=== PATIENT | male | born 1990 ===

== ENCOUNTER 2018-09-18 18:50 | Emergency (ER) | payer OTHER ==
--- NOTE | 2018-09-18 18:57 | ER Report ---
History and Physical Time Seen By MD: 18:58 HPI/ROS CHIEF COMPLAINT: Sore throat HISTORY OF PRESENT ILLNESS: This is a 27-year-old male who presents to the emergency department for a sore throat. Last Tuesday the patient's was in [place] for the , had a sore throat, went to a walking clinic, they tested him for strep throat was positive given an injection of penicillin. Continue to have a sore throat for the next couple of days, went to an emergency departments in [place] at which time they did some basic blood w ork and a CT of the neck all of which was negative. He continued with penicillin, has continued to progressively get worse since , with difficulties swallowing, now it feels as though his throat is starting to close, swelling in his tongue. He did go to [facility] for follow-up today, they switched him from a penicillin, now he is taking roel myosin, prednisone and was given a shot of Toradol. Patient has also been febrile at home, aches and chills. Patient states it's difficult to open his mouth completely or close it completely. Pain in the base of his tongue which wraps up around his right jaw into right side of his head. He also has right-sided ear pain. Denies chest pain or shortness of breath. He does however have nausea no vomiting. No diarrhea. REVIEW OF SYSTEMS: Constitutional: As above. Eyes: No discharge. ENT: As above. Cardiovascular: No chest pain, no palpitations. Respiratory: No cough, no shortness of breath. Gastrointestinal: As above. Genitourinary: No hematuria. Musculoskeletal: No back pain. Skin: No rashes. Neurological: No headache. Allergies: Coded Allergies: No Known Drug Allergies (Unverified , 09/18/18) Home Meds Reported Medications Prednisone (PREDNISONE) 20 Mg Tablet, 60 MG PO QDAY for 5 Days, TAB 09/18/18 Clindamycin Hcl (CLINDAMYCIN HCL) 300 Mg Capsule, 300 MG PO Q6H, #40 CAPSULE 09/18/18 Past Medical/Surgical History The patient has no significant past medical or surgical histories. Reviewed Nurses Notes: Yes Constitutional Vital Sign - Last 24 Hours 09/18/18 09/18/18 09/18/18 09/18/18 18:50 18:54 18:56 19:00 Temp 99.6 Pulse ??? 96 Resp 20 B/P (MAP) 150/102 150/102 (118) 130/87 (101) Pulse Ox 93 O2 Delivery Room Air 09/18/18 09/18/18 09/18/18 09/18/18 19:05 19:10 19:25 19:40 Pulse 94 95 ? Pulse Ox 91 90 09/18/18 09/18/18 09/18/18 09/18/18 19:55 20:00 20:06 20:10 Pulse ? B/P (MAP) ???/??? (1665) 118/85 (96) 09/18/18 09/18/18 09/18/18 09/18/18 20:25 20:30 20:40 20:55 Pulse ? B/P (MAP) 121/78 (92) Intake and Output 09/18/18 09/18/18 09/19/18 14:59 22:59 06:59 Intake Total 1200 ml 500 ml Balance 1200 ml 500 ml Physical Exam General Appearance: The patient is alert, has no immediate need for airway protection and no signs of toxicity. Eyes: Pupils equal and round no pallor or injection. ENT, Mouth: Mucous membranes are moist., TMs noted bilaterally, pearly cub[place], landmarks noted, no injection. Significant swelling and erythema to the tonsils and posterior oropharynx right>left. Anterior cervical chain and submandibular lymphadenopathy, mild preauricular lymphadenopathy.+ trismus. Respiratory: There are no retractions, lungs are clear to auscultation. Cardiovascular: Regular rate and rhythm, no murmurs, clicks or rubs. Gastrointestinal: Abdomen is soft and non tender, no masses, bowel sounds normal. Neurological: Alert and oriented 4. Moving all extreme these. Following all commands. No focal neuro deficits. Skin: Warm and dry, no rashes. Musculoskeletal: Neck is supple non tender. Extremities are nontender, nonswollen and have full range of motion. DIFFERENTIAL DIAGNOSIS: After history and physical exam differential diagnosis was considered for peritonsillar abscess, tonsillitis, Alexandro's angina, mono and strep pharyngitis. Medical Decision Making Data Points Result Diagram: 09/18/18192009/18/181920 Laboratory Hematology Test 09/18/18 19:21 Red Blood Count 5.51 M/uL (4.00-5.60) Mean Corpuscular Volume 85.1 fL (80.0-96.0) Mean Corpuscular Hemoglobin 29.4 pg (26.0-33.0) Mean Corpuscular Hemoglobin Concent 34.6 g/dL (32.0-36.0) Red Cell Distribution Width 12.7 % (11.5-14.5) Mean Platelet Volume 8.1 fL (7.2-11.1) Neutrophils (%) (Auto) 76.1 % (39.4-72.5) Lymphocytes (%) (Auto) 16.1 % (17.6-49.6) Monocytes (%) (Auto) 6.4 % (4.1-12.4) Eosinophils (%) (Auto) 0.9 % (0.4-6.7) Basophils (%) (Auto) 0.5 % (0.3-1.4) Nucleated RBC Relative Count (auto) 0.0 /100WBC Neutrophils # (Auto) 9.9 K/uL (2.0-7.4) Lymphocytes # (Auto) 2.1 K/uL (1.3-3.6) Monocytes # (Auto) 0.8 K/uL (0.3-1.0) Eosinophils # (Auto) 0.1 K/uL (0.0-0.5) Basophils # (Auto) 0.1 K/uL (0.0-0.1) Nucleated RBC Absolute Count (auto) 0.00 K/uL Sodium Level 139 mmol/L (137-145) Potassium Level 3.6 mmol/L (3.5-5.0) Chloride Level 104 mmol/L (98-107) Carbon Dioxide Level 23 mmol/L (22-30) Blood Urea Nitrogen 19 mg/dl (9-21) Creatinine 1.10 mg/dl (0.66-1.25) Glomerular Filtration Rate Calc > 60.0 Random Glucose 138 mg/dl (75-110) Lactate 1.4 mmol/L (0.7-2.1) Calcium Level 9.1 mg/dl (8.4-10.2) Total Bilirubin 0.6 mg/dl (0.2-1.3) Aspartate Amino Transf (AST/SGOT) 20 U/L (0-35) Alanine Aminotransferase (ALT/SGPT) 27 U/L (0-56) Alkaline Phosphatase 82 U/L (0-126) Total Protein 7.9 g/dl (6.3-8.2) Albumin 3.9 g/dl (3.5-5.0) Chemistry Test 09/18/18 19:21 White Blood Count 13.0 k/uL (4.5-11.0) Red Blood Count 5.51 M/uL (4.00-5.60) Hemoglobin 16.2 g/dL (14.0-18.0) Hematocrit 46.9 % (42.0-52.0) Mean Corpuscular Volume 85.1 fL (80.0-96.0) Mean Corpuscular Hemoglobin 29.4 pg (26.0-33.0) Mean Corpuscular Hemoglobin Concent 34.6 g/dL (32.0-36.0) Red Cell Distribution Width 12.7 % (11.5-14.5) Platelet Count 336 K/uL (150-450) Mean Platelet Volume 8.1 fL (7.2-11.1) Neutrophils (%) (Auto) 76.1 % (39.4-72.5) Lymphocytes (%) (Auto) 16.1 % (17.6-49.6) Monocytes (%) (Auto) 6.4 % (4.1-12.4) Eosinophils (%) (Auto) 0.9 % (0.4-6.7) Basophils (%) (Auto) 0.5 % (0.3-1.4) Nucleated RBC Relative Count (auto) 0.0 /100WBC Neutrophils # (Auto) 9.9 K/uL (2.0-7.4) Lymphocytes # (Auto) 2.1 K/uL (1.3-3.6) Monocytes # (Auto) 0.8 K/uL (0.3-1.0) Eosinophils # (Auto) 0.1 K/uL (0.0-0.5) Basophils # (Auto) 0.1 K/uL (0.0-0.1) Nucleated RBC Absolute Count (auto) 0.00 K/uL Glomerular Filtration Rate Calc > 60.0 Lactate 1.4 mmol/L (0.7-2.1) Calcium Level 9.1 mg/dl (8.4-10.2) Total Bilirubin 0.6 mg/dl (0.2-1.3) Aspartate Amino Transf (AST/SGOT) 20 U/L (0-35) Alanine Aminotransferase (ALT/SGPT) 27 U/L (0-56) Alkaline Phosphatase 82 U/L (0-126) Total Protein 7.9 g/dl (6.3-8.2) Albumin 3.9 g/dl (3.5-5.0) EKG/Imaging Imaging CT of the neck, with contrast: Indication: Sore throat. Evaluate for abscess. Technique: Helical CT was performed through the neck following IV contrast enhancement with 75 cc of Isovue 370. Axial, coronal, and sagittal recons tructions are reviewed. One of the following dose optimization techniques was utilized in the perfor reji of this exam: Automated exposure control; adjustment of the mA and/or kV according to the patient's size; or use of an iterative reconstruction technique. Specific details can be referenced in the facility's radiology CT exam operational policy. Comparison: None available. Findings: There is a large, irregularly-shaped, fluid-density collection in or adjacent to the lateral aspect of the right pharyngeal tonsil, measuring 2.9 x 2.5 x 1.9 cm, compatible with abscess. There are no signs of air in the soft tissues. There is significant mass effect with medial displacement of the right pharyngeal tonsil and encroachment of the airway. There are multiple enlarged lymph nodes on the right side of the neck. A few enlarged lymph nodes are present on the left side of the neck. The left pharyngeal tonsil appears unremarkable. The parotid glands and submandibular glands appear symmetrical and unremarkable. The thyroid lobes appear symmetrical. There is a tiny cyst or nodule in the right thyroid lobe, approximately 3 mm size. The larynx appears normal. There is uniform enhancement of the vascular structures. The skeletal structures are well mineralized and intact. The visualized paranasal sinuses are clear. The mastoid air cells and auditory tracts appear normal. No focal abnormalities are identified in the upper chest. Impression: There is a large, fluid density collection in or adjacent to the lateral aspect of the right pharyngeal tonsil, compatible with abscess. There is significant mass effect with medial displacement of the right pharyngeal tonsil and encroachment of the airway. A preliminary report was called to Ga Johnson at [facility] at 2125 hours. Report Dictated By: Bean Lal MD at 09/18/2018 9:22 PM Report E-Signed By: Bean Lal MD at 09/18/2018 9:36 PM [id number] ED Course/Re-evaluation Clinical Indication for ER IV: Hydration, IV Access ED Course The patient was admitted to room. A history of score pain. Differential diagnoses were considered. An IV was started. A CBC, CMP and lactate were obtained.CBC showing WBC 13.0 with a left shift, chemistry unremarkable, lactate 1.4. A CT of the neck showing a large, fluid density collection in or adjacent to the lateral aspect of the right pharyngeal tonsil, compatible with abscess. There is significant mass effect with medial displacement of the right pharyngeal tonsil and encroachment of the airway. Patient was given a 1 L normal saline bolus, 4 mg IV Zofran, 4 mg IV morphine. 1000 mg IV Ofirmev. 3.375 g Zosyn. I reviewed the laboratory studies and the CT report with the patient, I did tell him that I'm concerned with the rapid progression of the abscess today with the increased difficulty swallowing and encroachment into his airway, I did recommend the transfer to [facility], the patient is agreeable. I did speak with Dr. Baltazar, as noted below, the patient will be transferred to [facility] via ground EMS. 09/18/2018 9:30:14 pm I did speak with Dr. Homer Hood, the local research hydraulic engineer, he is not inspector heating and refrigeration but advised, he is unavailable to see the patient tonight or tomorrow therefore suggested transferring the patient. 09/18/2018 10:05:13 pm I did speak with Dr. Gutierrez from [facility], research hydraulic engineer inspector heating and refrigeration, we discussed the case, he accepts the patient for evaluation and I&D of the abscess and possible admission at [facility]. Decision to Disposition Date: Sep 18, 2018 Decision to Disposition Time: 22:04 Depart Departure Latest Vital Signs Vital Signs Date Time Temp Pulse Resp B/P (MAP) Pulse Ox O2 Delivery O2 Flow Rate FiO2 09/18/18 20:55 ??? 09/18/18 20:30 121/78 (92) 09/18/18 19:10 90 09/18/18 18:54 99.6 20 Room Air Impression: Primary Impression: Tonsillar abscess Condition: Improved Disposition: XFER TO [facility]UTE [facility] ([facility]) GA JOHNSON GALLERY ASSISTANT-BC Sep 18, 2018 18:57
[2018-09-18] MEDS ORDERED: CLIN300C99 PO (19:01)
[2018-09-18] MEDS ORDERED: PRED20TA6 PO (19:01)
[2018-09-18] MEDS ORDERED: NS(*) 0.9% 1000 ML BAG 1,000 ML IV ONE ×2 (19:15→22:15)
[2018-09-18] MEDS ORDERED: ONDANSETRON 4 MG/2 ML VIAL IVP ONE (19:25)
[2018-09-18] MEDS ORDERED: MORPHINE 4 MG/ML SDV IVP ONE (19:25)
[2018-09-18 19:27] LABS: PLATELET COUNT, AUTOMATED 336 K/uL (150-450)
[2018-09-18] MEDS ORDERED: IOPAMIDOL 76% 75 ML INFUS BTL 75 ML ONE (19:36)
[2018-09-18 20:30] VITALS: BP 121/78
[2018-09-18] MEDS ORDERED: ACETAMINOPHEN(*)1000 MG/100 ML 100 ML IVPB ONE (20:35)
[2018-09-18] MEDS ORDERED: PIPERACILLIN/TAZO*3.375GM VIAL 3.375 GM in NS(*) 0.9% 100 ML ADDVANT BAG 100 ML IVPB ONE (21:30)
--- NOTE | 2018-09-18 21:40 | RADIOLOGY IMAGING REPORT ---
FACILITY: [facility] [place] PATIENT NAME: Bhavesh Seo : 1990 MR: [id number] V: [id number] EXAM DATE: ORDERING PHYSICIAN: ELKIN PATEL TECHNOLOGIST: Location: [facility] [place] Patient: Bhavesh Seo : 1990 Visit/Account:[id number] Date of Sevice: 09/18/2018 CT of the neck, with contrast: Indication: Sore throat. Evaluate for abscess. Technique: Helical CT was performed through the neck following IV contrast enhancement with 75 cc of Isovue 370. Axial, coronal, and sagittal reconstructions are reviewed. One of the following dose optimization techniques was utilized in the performance of this exam: Autom ated exposure control; adjustment of the mA and/or kV according to the patient's size; or use of an i terative reconstruction technique. Specific details can be referenced in the facility's radiology CT exam operational policy. Comparison: None available. Findings: There is a large, irregularly-shaped, fluid-density collection in or adjacent to the latera l aspect of the right pharyngeal tonsil, measuring 2.9 x 2.5 x 1.9 cm, compatible with abscess. There are no signs of air in the soft tissues. There is significant mass effect with medial displacement o f the right pharyngeal tonsil and encroachment of the airway. There are multiple enlarged lymph nodes on the right side of the neck. A few enlarged lymph nodes are present on the left side of the neck. The left pharyngeal tonsil appears unremarkable. The parotid glands and submandibular glands appear s ymmetrical and unremarkable. The thyroid lobes appear symmetrical. There is a tiny cyst or nodule in the right thyroid lobe, approximately 3 mm size. The larynx appears normal. There is uniform enhancement of the vascular structures. The skeletal structures are well mineralized and intact. The visualized paranasal sinuses are clear. The mastoid air cells and auditory tracts ap pear normal. No focal abnormalities are identified in the upper chest. Impression: There is a large, fluid density collection in or adjacent to the lateral aspect of the ri ght pharyngeal tonsil, compatible with abscess. There is significant mass effect with medial displace ment of the right pharyngeal tonsil and encroachment of the airway. A preliminary report was called to Elkin Patel at [facility] [place] at 2125 hours. Report Dictated By: Bean Lal MD at 09/18/2018 9:22 PM Report E-Signed By: Bean Lal MD at 09/18/2018 9:36 PM [id number]
[2018-09-18] MEDS ORDERED: HYDROMORPHONE HCL 1 MG/ML SYRINGE IVP ONE (22:50)
== END 2018-09-18 22:55 | disposition short-term general hospital (02) ==
LOC: ER 19:08
DX: J36 Peritonsillar abscess (principal)
CPT/HCPCS: 70491; 83605; 85025; 96361; 96365; 96375; 99285; J0131; J1170; J2270; J2405; J2543; J7030; J7050; Q9967; 82040; 82247; 82310; 82374; 82435; 82565; 82947; 84075; 84132; 84155; 84295; 84450; 84460; 84520

== ENCOUNTER → 2018-09-18 | Outpatient (CLI) | payer OTHER ==
[~2018-09-18] MED LIST: CLIN300C99 PO; PRED20TA6 PO
== END ==
LOC: AMB 22:36
PROVIDERS: ATTEND Nurse Practitioner
DX: J36 Peritonsillar abscess (principal); R53.1 Weakness; R09.02 Hypoxemia
CPT/HCPCS: A0425; A0426